=== PATIENT | male | born 1955 | race Hispanic/Latino ===

== ENCOUNTER 2017-09-06 10:58 | Day surgery (SDC) | payer MEDICARE ==
[2017-09-06] MEDS ORDERED: NEOFRIN ONE (11:04)
[2017-09-06] MEDS ORDERED: IOPIDINE ONE (11:04)
[2017-09-06] MEDS ORDERED: MYDRIACYL ONE (11:04)
[2017-09-06] MEDS ORDERED: NEOFRIN OS ONE (11:40)
[2017-09-06] MEDS ORDERED: MYDRIACYL OS ONE (11:40)
[2017-09-06] MEDS ORDERED: IOPIDINE OS ONE ×2 (11:40→12:35)
[2017-09-06 12:41] VITALS: BP 118/78
== END 2017-09-06 12:36 | disposition home or self-care (01) ==
LOC: OR 10:58
PROVIDERS: ATTEND Specialist
DX: H26.492 Other secondary cataract, left eye (principal); I10 Essential (primary) hypertension; E11.9 Type 2 diabetes mellitus without complications; M10.9 Gout, unspecified; Z86.73 Personal history of transient ischemic attack (TIA), and cerebral infarction without residual deficits; Z98.890 Other specified postprocedural states
CPT/HCPCS: 82962